=== PATIENT | male | born 1980 | race Caucasian/White ===

== ENCOUNTER 2017-10-08 16:58 | Emergency (ER) | payer OTHER ==
[~2017-10-08 16:58] MED LIST: EPINEPHrine SYRINGE 1 MG/10 ML SYRINGE
== END 2017-10-08 19:56 | disposition expired ==
LOC: ER 16:58
DX: T71.164A Asphyxiation due to hanging, undetermined, initial encounter (principal); I46.9 Cardiac arrest, cause unspecified
CPT/HCPCS: 31500; 99291-25; J0171